=== PATIENT | male | born 1980 | race Caucasian/White ===

== ENCOUNTER 2021-07-06 05:03 | Observation (INO) ==
[2021-07-06] MEDS ORDERED: ONDANSETRON INJ 2 MG/ML 2 ML VIAL IV STA (05:24)
[2021-07-06] MEDS ORDERED: MoRPHine SULFATE 4 MG/ML 1 ML CARP\\VIAL IV STA (05:24)
[2021-07-06] MEDS ORDERED: SODIUM CHLORIDE 0.9% 1000ML 1,000 ML IV ONE (05:25)
--- NOTE | 2021-07-06 05:28 | Emergency Department Note ---
Impression & Plan Hyperglycemia, Acute cholecystitis ADMIT ED Provider Note HPI: The patient is a 41-year-old male who presents the emergency department the chief complaint of upper abdominal discomfort as well as nausea and vomiting this been ongoing since 1130 last evening. Patient states he has had several episodes of vomiting. Patient denies any chest pain or shortness of breath. He states the pain radiates from his epigastrium to his right upper quadrant and back. Arrival to the ED the patient is mildly tachycardic but otherwise hemodynamically stable and in no acute distress. ROS: -Abdominal: Right upper quadrant pain *10 point review systems was conducted and is otherwise negative unless stated above *Outpatient medications and allergy history reviewed PE: General: Alert, NAD HEENT: Normocephalic, atraumatic Eyes: Extraocular eye movement is intact, no scleral erythema Pulmonary: Clear to auscultation bilaterally, no wheezing Cardio: Regular rate and rhythm GI: Abdomen is soft, tenderness over the epigastrium to palpation, no rigidity : No suprapubic tenderness MSK: No evidence of trauma or malformation of the extremities, no edema Skin: No evidence of rash Neuro: Alert, no focal deficits Psychiatric: Cooperative consulting actuary: - An order was placed for continuous cardiac monitoring - Patient was noted to be in sinus rhythm with rate of 80 Medical Decision Making: Patient presented to the emergency department with subacute onset upper abdominal pain as well as nausea and vomiting that began last evening. Shortly after arrival IV was established, lab work obtained, patient was given IV antiemetics, pain medication, and IV fluids. Lab work shows evidence of hyperglycemia without any evidence of DKA, no leukocytosis, no transaminitis. Ultrasound imaging of the gallbladder is equivocal, there is no clear evidence of acute cholecystitis, sonographic Roberto sign is reportedly negative. CT imaging of the abdomen pelvis was obtained that does show some gallbladder wall thickening and is suggesting acute cholecystitis is a possibility. My reassessment the patient states his pain is improved. His lab work does show ev idence of hyperglycemia that appears new, patient states he has no history of diabetes. Given this in conjunction with concerning CT findings, patient will be admitted to the medicine service for further management and surgical consultation was placed. Patient is hemodynamically stable and improved from the standpoint of his pain on my reassessment. Patient is in agreement for admission and he was admitted in stable condition, consultation was placed to the [facility] medical service and Dr. Weems is aware of the admission. Diagnosis: 1. Hyperglycemia without DKA 2. Abdominal pain 3. Nausea and vomiting 4. Cholecystitis Disposition: Admission Enmanuel King DO Emergency Medicine Past Med/Surg History Medical History (Updated 07/06/21 @ 08:01 by Enmanuel King DO) Lower extremity surgery planned Surgical History (Updated 11/24/20 @ 13:19 by AP Brown) H/O eye surgery Family History (Updated 11/24/20 @ 13:20 by AP Brown) Grandmother Breast cancer Myocardial infarction Diabetes Grandfather Diabetes Denies family history of Ovarian cancer Prostate cancer Colorectal cancer Social History (Updated 11/24/20 @ 13:21 by AP Brown) Smoking Status: Current every day smoker Tobacco Type: Cigarettes Second Hand Exposure: No; Hx Alcohol Use: No Hx Substance Use: No marital status: Current Living Situation: Spouse Current Living Situation Comment: and child current occupational status: employed current occupation: [employer] Feels Safe at Home: Yes caffeine: Yes (coffee and tea ) Dental Care, Regularly: No Physical Activity Frequency: 1-2 Times per Week Physical Activity Frequency Comment: working Seatbelt Use: always Sunscreen Use: Yes Allergies Allergies Allergy/AdvReac Type Severity Reaction Status Date / Time No Known Allergies Allergy Unknown Verified 07/06/21 07:10 Home Meds Home Medications Medication Instructions Recorded Confirmed naproxen sodium 220 mg tablet 220 mg PO BID PRN 07/06/21 07/06/21 (Aleve) ranitidine HCl 150 mg tablet 150 mg PO DAILY PRN 07/06/21 07/06/21 Results & Data (ED) Vital Signs Vital Signs - 24 hr 07/06/21 05:13 07/06/21 06:18 07/06/21 06:27 Temperature 37 C Temperature Source Oral Pulse Rate 106 H Pulse Rate [Apical] 76 Pulse Rhythm [Apical] Respiratory Rate 20 12 Respiratory Effort / Characteristics Non-Labored Spontaneous Non-Labored Spontaneous Respiratory Depth Normal Respiratory Pattern Blood Pressure 122/84 Blood Pressure [Right Arm] 148/79 H Blood Pressure Mean 96 Blood Pressure Mean [Right Arm] 102 Blood Pressure Position Sitting Pulse Oximetry 97 99 99 Oxygen Delivery Method Room Air Room Air Room Air Sepsis Recent Fever Within 48 Hours No Sepsis New/Unexplained Change in Mental Status N/A Sepsis Action Taken by Nursing No Action Required 07/06/21 07:00 Temperature Temperature Source Pulse Rate Pulse Rate [Apical] 84 Pulse Rhythm [Apical] Regular Respiratory Rate 18 Respiratory Effort / Characteristics Non-Labored Respiratory Depth Normal Respiratory Pattern Regular Blood Pressure Blood Pressure [Right Arm] 136/82 Blood Pressure Mean Blood Pressure Mean [Right Arm] 100 Blood Pressure Position Pulse Oximetry 100 Oxygen Delivery Method Room Air Sepsis Recent Fever Within 48 Hours Sepsis New/Unexplained Change in Mental Status Sepsis Action Taken by Nursing Laboratory Data Result diagrams: 07/06/21 05:40 07/06/21 05:40 Lab Results 07/06/21 07/06/21 Range/Units 05:40 05:40 WBC 7.51 (4.8-10.8) K/uL RBC 5.78 (4.7-6.1) M/uL Hgb 16.5 (14.0-18.0) g/dL Hct 46.8 (42-52) % MCV 81.0 (80-100) fL MCH 28.5 (25-34) pg MCHC 35.3 (32-36) g/dL RDW Std Deviation 35.6 L (36.4-46.3) fL RDW Coeff of Fernando 12.1 (11.5-14.5) % Plt Count 206 (130-400) K/uL MPV 11.3 H (7.4-10.4) fL Immature Gran % (Auto) 0.3 % Neut % (Auto) 78.8 % Lymph % (Auto) 14.1 % [place] % (Auto) 6.0 % Eos % (Auto) 0.7 % Baso % (Auto) 0.1 % Neut # (Auto) 5.92 (1.4-6.5) K/uL Lymph # (Auto) 1.06 L (1.2-3.4) K/uL [place] # (Auto) 0.45 (0.11-0.59) K/uL Eos # (Auto) 0.05 (0-0.5) K/uL Baso # (Auto) 0.01 (0-0.2) K/uL Immature Gran # (Auto) 0.02 (0.00-0.02) K/uL Sodium 131 L (136-145) mmol/L Potassium 4.6 (3.5-5.1) mmol/L Chloride 97 L (98-107) mmol/L Carbon Dioxide 25 (21-32) mmol/L Anion Gap 9 (3-11) BUN 15 (6-23) mg/dl Creatinine 0.81 (0.6-1.4) mg/dl Est Cr Clr Drug Dosing 96.3 ml/min Est GFR ( Amer) 126.2 ml/min Est GFR (Non-Af Amer) 108.9 ml/min BUN/Creatinine Ratio 18.5 (10-20) Glucose 334 H* (70-99(Fasting)) mg/dl Calcium 9.5 (8.5-10.1) mg/dl Total Bilirubin 0.5 (0.2-1.0) mg/dl AST 12 L (13-39) U/L ALT 16 (7-52) U/L Alkaline Phosphatase 117 H (34-104) U/L Total Protein 7.7 (6.0-8.3) gm/dl Albumin 4.4 (3.4-5.0) gm/dl Globulin 3.3 (2.5-4.0) gm/dl Albumin/Globulin Ratio 1.3 (0.9-2) Lipase 37 (11-82) U/L Administered Medications Discontinued Medications Sodium Chloride (Nss 1000ml) 1,000 mls @ 999 mls/hr IV .Q1H1M ONE Stop: 07/06/21 06:25 Last Infusion: 07/06/21 07:20 Dose: 0 mls/hr Documented by: [id number] Admin: 07/06/21 06:17 Dose: 999 mls/hr Documented by: [id number] Ioversol (Optiray 320 100ml) 93 ml IV ONCE ONE Stop: 07/06/21 07:14 Last Admin: 07/06/21 07:13 Dose: 93 ml Documented by: [id number] Morphine Sulfate (Morphine Sulfate 4 Mg/Ml 1 Ml Carp\Vial) 4 mg IV NOW STA Stop: 07/06/21 05:25 Last Admin: 07/06/21 06:24 Dose: Not Given Documented by: [id number] Ondansetron HCl (Ondansetron Inj 2 Mg/Ml 2 Ml Vial) 4 mg IV NOW STA Stop: 07/06/21 05:25 Last Admin: 07/06/21 06:24 Dose: Not Given Documented by: [id number] Imaging Data Radiologist's Impression: Gallbladder Ultrasound 07/06/21 05:23 US gallbladder CLINICAL HISTORY: RUQ pain, N/V COMPARISON STUDY: CT of the abdomen and pelvis July 11, 2012. . FINDINGS: Liver is sonographically normal. There is no biliary ductal dilatation. Common bile duct measures 3 mm in caliber. There are gallstones within the gallbladder, including a stone which measures approximately 1.4 cm. There is sludge within the gallbladder. Mild gallbladder wall thickening is noted. The wall measures 4 mm thickness. No sonographic Roberto sign was elicited. Pancreatic body is normal. Head and tail are partially obscured. There is no right hydronephrosis. IMPRESSION: 1. Cholelithiasis and mild gallbladder wall thickening. No sonographic Roberto sign. These findings are equivocal for acute cholecystitis. Hepatobiliary scan could be obtained as indicated. 2. No biliary ductal dilatation. ACT 112: Negative or not required by law. Electronically signed by: Austin Saucedo M.D. 07/06/2021 6:33 AM Abdomen/Pelvis CT 07/06/21 06:37 CT OF THE ABDOMEN AND PELVIS WITH CONTRAST CLINICAL HISTORY: Upper abdominal pain, nausea and vomiting. COMPARISON STUDY: CT of the abdomen and pelvis July 11, 2012. Right upper quadrant ultrasound performed earlier today. TECHNIQUE: Following IV administration of 93 mL of Optiray, axial images of the abdomen and pelvis were obtained from the lung bases to the proximal femurs. Images were reviewed in the axial, sagittal, and coronal planes. IV contrast was administered without complication. Automated exposure control was utilized for the study. A dose lowering technique was utilized adhering to the principles of ALARA. CT DOSE: 442.42 mGycm FINDINGS: Lung bases are unremarkable. No pneumatosis, free air or portal venous gas is present. The liver, spleen, adrenal glands, kidneys and pancreas are normal. There is no biliary or pancreatic ductal dilatation. There are multiple gallstones within the gallbladder. These measure up to 1.4 cm. A few calcified stones within the gallbladder neck are noted. There is moderate gallbladder wall thickening. Gallbladder is not significantly distended. No peripancreatic infiltration is present. Caliber and wall thickness of small and large bowel are normal. There is no evidence for a bowel obstruction. No evidence for acute appendicitis. Major vasculature is patent. No lymphadenopathy is present. There is no ascites. No acute fracture or suspicious lesion within the visualized skeletal structures. IMPRESSION: Cholelithiasis, including calculi within the gallbladder neck. Moderate gallbladder wall thickening. These findings favor acute cholecystitis. ACT 112: Negative or not required by law. Electronically signed by: Austin Saucedo M.D. 07/06/2021 7:25 AM Discharge Plan Visit Data Chief Complaint: Abdominal Pain Stated Complaint: ABDOMINAL PAIN AND BACK PAIN ED Provider: Enmanuel King Discharge Problem: Hyperglycemia, Acute cholecystitis Forms Stand Alone Forms: [facility] Prescriptions Prescriptions: No Action ranitidine HCl [Zantac] 150 mg Tablet 150 mg PO DAILY PRN (Reason: Indigestion) RF: 0 naproxen sodium [Aleve] 220 mg Tablet 220 mg PO BID PRN (Reason: Pain) RF: 0 Referrals Referrals: Kushal Mojica DO [Primary Care Provider] -
[2021-07-06 06:07] LABS: Basophils # (auto) 0.01 K/uL (0-0.2); Basophils % (auto) 0.1 %; Eosinophils # (auto) 0.05 K/uL (0-0.5); Eosinophils % (auto) 0.7 %; Hematocrit (blood only) 46.8 % (42-52); Hemoglobin 16.5 g/dL (14.0-18.0); Immature Granulocytes # (auto) 0.02 K/uL (0.00-0.02); Immature Granulocytes % (auto) 0.3 %; Lymphocytes # (auto) 1.06 K/uL (1.2-3.4); Lymphocytes % (auto) 14.1 %; Mean Corpuscular Hemoglobin 28.5 pg (25-34); Mean Corpuscular Hgb Conc 35.3 g/dL (32-36); Mean Platelet Volume 11.3 fL (7.4-10.4); Monocytes # (auto) 0.45 K/uL (0.11-0.59); Neutrophils # (auto) 5.92 K/uL (1.4-6.5); Neutrophils % (auto) 78.8 %; Platelet Count 206 K/uL (130-400); RDW Coefficient of Variation 12.1 % (11.5-14.5); RDW Standard Deviation 35.6 fL (36.4-46.3); Red Blood Count 5.78 M/uL (4.7-6.1); White Blood Count 7.51 K/uL (4.8-10.8)
--- NOTE | 2021-07-06 06:35 | Ultrasound Report ---
US gallbladder CLINICAL HISTORY: RUQ pain, N/V COMPARISON STUDY: CT of the abdomen and pelvis July 11, 2012. . FINDINGS: Liver is sonographically normal. There is no biliary ductal dilatation. Common bile duct me asures 3 mm in caliber. There are gallstones within the gallbladder, including a stone which measures approximately 1.4 cm. There is sludge within the gallbladder. Mild gallbladder wall thickening is no rico. The wall measures 4 mm thickness. No sonographic Roberto sign was elicited. Pancreatic body is no rmal. Head and tail are partially obscured. There is no right hydronephrosis. IMPRESSION: 1. Cholelithiasis and mild gallbladder wall thickening. No sonographic Roberto sign. These findings ar e equivocal for acute cholecystitis. Hepatobiliary scan could be obtained as indicated. 2. No biliary ductal dilatation. ACT 112: Negative or not required by law. Electronically signed by: Austin Saucedo M.D. 07/06/2021 6:33 AM
[2021-07-06 06:57] LABS: Albumin Globulin Ratio 1.3 (0.9-2); Albumin Level 4.4 gm/dl (3.4-5.0); BUN Creatinine Ratio 18.5 (10-20); Bilirubin,Total 0.5 mg/dl (0.2-1.0); Calcium 9.5 mg/dl (8.5-10.1); Creatinine Clr Calc Pharmacy 96.3 ml/min; Est GFR (African American) 126.2 ml/min; Est GFR (Non-African American) 108.9 ml/min; Globulin 3.3 gm/dl (2.5-4.0); Potassium 4.6 mmol/L (3.5-5.1); Total Protein 7.7 gm/dl (6.0-8.3)
[2021-07-06] MEDS ORDERED: OPTIRAY 320 100ml IV ONE (07:13)
--- NOTE | 2021-07-06 07:26 | CT Scan Report ---
CT OF THE ABDOMEN AND PELVIS WITH CONTRAST CLINICAL HISTORY: Upper abdominal pain, nausea and vomiting. COMPARISON STUDY: CT of the abdomen and pelvis July 11, 2012. Right upper quadrant ultrasound perform ed earlier today. TECHNIQUE: Following IV administration of 93 mL of Optiray, axial images of the abdomen and pelvis we re obtained from the lung bases to the proximal femurs. Images were reviewed in the axial, sagittal, and coronal planes. IV contrast was administered without complication. Automated exposure control wa s utilized for the study. A dose lowering technique was utilized adhering to the principles of ALARA . CT DOSE: 442.42 mGycm FINDINGS: Lung bases are unremarkable. No pneumatosis, free air or portal venous gas is present. The liver, spleen, adrenal glands, kidneys and pancreas are normal. There is no biliary or pancreatic jan kartik dilatation. There are multiple gallstones within the gallbladder. These measure up to 1.4 cm. A f ew calcified stones within the gallbladder neck are noted. There is moderate gallbladder wall thicken ing. Gallbladder is not significantly distended. No peripancreatic infiltration is present. Caliber a nd wall thickness of small and large bowel are normal. There is no evidence for a bowel obstruction. No evidence for acute appendicitis. Major vasculature is patent. No lymphadenopathy is present. There is no ascites. No acute fracture or suspicious lesion within the visualized skeletal structures. IMPRESSION: Cholelithiasis, including calculi within the gallbladder neck. Moderate gallbladder wall thickening. These findings favor acute cholecystitis. ACT 112: Negative or not required by law. Electronically signed by: Austin Saucedo M.D. 07/06/2021 7:25 AM
--- NOTE | 2021-07-06 08:00 | History & Physical Report ---
Date of Service July 06, 2021 Assessment & Plan (1) Acute cholecystitis: Plan: J Luis is a 41yo M with a PMHx of tobacco use who presents with abdominal pain and imaging suggestive of cholelithiasis Cholelithiasis - CT: IMPRESSION: Cholelithiasis, including calculi within the gallbladder neck. Moderate gallbladder wall thickening. These findings favor acute cholecystitis. - US: 1. Cholelithiasis and mild gallbladder wall thickening. No sonographic Roberto sign. These findings are equivocal for acute cholecystitis. Hepatobiliary scan could be obtained as indicated. No biliary ductal dilatation. - WBC normal, Hgb normal - Plt normal - Cr normal - BSG 335 on admit, no hx DM - AST/ALT/Alkph 02/05/ - COVIDnegative Surgery consulted. Plan for lap cholecystectomy today. Pain control with morphine scaled 2-4 mg every 4 hours as needed as needed, nausea control Zofran NSS 125 cc/h while n.p.o. Received 1 L NSS bolus in ER Type 2 diabetes mellitus, new Patient with no prior history of type 2 diabetes. Does report family history of type 2 diabetes Glucose over 300 on admission. Received 10 units of IV insulin and basal/bolus sliding scale weight-based subcu Glucose decreased to 127 on recheck Recommend addition of metformin to be titrated to goal of 1 g twice daily as outpatient on discharge Given A1c greater than 10 recommend dual therapy on discharge. No history of CAD. SGLT2 versus Januvia Will require close outpatient follow-up to PCP community educator consulted Will need DM supplies for home glycemic monitoring on discharge R Leg Hardware - Metal plates and 9 screws in R leg, well healed. DVT prophylaxis: SCDs, low risk. Lovenox deferred in anticipation of cholecystectomy this afternoon CODE STATUS: Full code, surrogate decision maker would be his in an emergen cy Diet: N.p.o. Disposition: Medical surgical (2) Hyperglycemia: (3) Smoker: History of Present Illness Primary Care Provider: Kushal Mojica DO The patient is a 41-year-old male who p/w upper abdominal discomfort as well as nausea and vomiting this been ongoing since 1130 last evening. Pain from epigastrum to RUQ/back. Tachy and normotensive on admit. no leukocytosis. CT-Ab: IMPRESSION: Cholelithiasis, including calculi within the gallbladder neck. Moderate gallbladder wall thickening. These findings favor acute cholecystitis. US: IMPRESSION:1. Cholelithiasis and mild gallbladder wall thickening. No sonographic Roberto sign. These findings are equivocal for acute cholecystitis. Hepatobiliary scan could be obtained as indicated. 2. No biliary ductal dilatation. 1130 pm thought had heartburn. No improvement with zantac. Traveled from his epigastrum to RUQ/RLQ and back. Took alieve, soaked in the tub, tried and ice pack on his bakc all of which did not help. With persistent pain came in to ER. Found out he had a gallbladder problem and that he has high blood suga NO pain with meals. NO change in BMs/BMs brown not zelaya. No history of gallbladder problems no history of abdominal surgery Hx of leg surgery. 9 screws and 1 plate in R leg.Needed tear duct surgery as a child. Denies lung disease WBC normal Hgb normal Plt normal Cr normal BSG 335 on admit, no hx DM AST/ALT/Alkph COVID Pending Recieved morphine, zofran, 1L NSS in ER. Surgery Consulted by ER No heart problems No FHx of [place]. Fhx HTN and T2DM Medical History: Reviewed Medications: Reviewed Surgical History: Reviewed Allergies: Reviewed, NKDA Social History: 0.5ppd 'for quite a long time.' Alcohol rare/social. No MM or recreational drug use. Code Status: Full Code. Surrogate DM [phone] Meghann Hilario. Allergies Allergy/AdvReac Type Severity Reaction Status Date / Time No Known Allergies Allergy Unknown Verified 07/06/21 07:10 Home Medications Medication Instructions Recorded Confirmed Type naproxen sodium 220 mg tablet 220 mg PO BID PRN 07/06/21 07/06/21 History (Aleve) ranitidine HCl 150 mg tablet 150 mg PO DAILY PRN 07/06/21 07/06/21 History Past Med/Surg History Medical History Lower extremity surgery planned Orthopedic hardware present Surgical History H/O eye surgery Family History Grandmother Breast cancer Myocardial infarction Diabetes Grandfather Diabetes Denies family history of Ovarian cancer Prostate cancer Colorectal cancer Social History Smoking Status: Current some day smoker Tobacco Type: Cigarettes Second Hand Exposure: No; Do You Dip or Chew Tobacco: No; Tobacco Cessation Education Requested by Patient: No Hx Alcohol Use: Yes Alcohol type: beer Hx Substance Use: No Preferred Language: Greek Communication Ability: 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 Beliefs That Will Affect Care: None marital status: Current Living Situation: Family Current Living Situation Comment: and child current occupational status: employed current occupation: [employer] Feels Safe at Home: Yes Safety Concerns: Feels Safe At This Time caffeine: Yes (coffee and tea ) Dental Care, Regularly: No Physical Activity Frequency: 1-2 Times per Week Physical Activity Frequency Comment: working Seatbelt Use: always Sunscreen Use: Yes Assistive Devices: Glasses Review of Systems Review of Systems: All systems reviewed & are unremarkable except as noted in Subjective Physical Exam Physical Exam: General: A&Ox3. NAD. Cooperative. HEENT: Atraumatic, normocephalic. Pulm: CTAB A&P. -wheezes, -rales, -rhonchi. Symmetrical chest rise. No increased work of breathing. No respiratory distress. Cardiac: RRR, -mrg. Radial pulses intact and symmetrical. Abdominal: NT on soft palpation, minimally TTP at RUQ on firm palpation, no guarding, no rigidity Results & Data Results & Data ([facility]) Vital Signs (Past 12 Hours) Vital Signs Temp Pulse Pulse Resp BP BP Pulse Ox 07/06/21 07:00 84 18 136/82 100 07/06/21 06:27 99 07/06/21 06:18 76 12 148/79 H 99 07/06/21 05:13 37 C 106 H 20 122/84 97 PG Care Time/CCT Total # of Minutes Spent Total Time Spent with Patient: Total time spent is greater than 50% in coordination of care (as documented) at patient's floor/unit and/or counseling patient: Coding Level of Care Code INT OBSERVATION CARE 50M LVL 2 Diagnoses Acute cholecystitis K81.0 Hyperglycemia R73.9 Smoker F17.200
[2021-07-06] MEDS ORDERED: NovoLIN-R INSULIN PER UNIT CHARGE IV STA (08:05)
[2021-07-06] MEDS ORDERED: MoRPHine SULFATE 4 MG/ML 1 ML CARP\\VIAL IV PRN (08:06)
[2021-07-06] MEDS ORDERED: MoRPHine SULFATE 2 MG/ML CARP IV PRN (08:06)
[2021-07-06] MEDS ORDERED: NICOTINE 21 MG/24 HR TDSY TD PRN (08:06)
[2021-07-06 09:35] LABS: Appearance Urine Clear (Clear); Bilirubin Urine Negative (Negative); Blood Urine Negative (Negative); Color Urine Yellow; Glucose Urine UA 3+ (Negative); Ketones Urine Trace (Negative); Leukocyte Esterase Urine Negative (Negative); Nitrite Urine Negative (Negative); Protein Urine Negative (Negative); Specific Gravity Urine > 1.045 (1.000-1.030); Urobilinogen Urine Negative (Negative)
[2021-07-06] MEDS ORDERED: CARBOHYDRATES FOR HYPOGLYCEMIA PO PRN (10:14)
[2021-07-06] MEDS ORDERED: GLUCOSE 40% GEL 15 GM TUBE PO PRN (10:14)
[2021-07-06] MEDS ORDERED: INSULIN GLARGINE SOLOSTAR 100 UNITS/ML 3 ML PEN SC SCH ×2 (10:14→21:00)
[2021-07-06] MEDS ORDERED: DEXTROSE 50% 50 ML SYRINGE IV PRN (10:14)
[2021-07-06] MEDS ORDERED: ACETAMINOPHEN 325 MG TAB PO PRN (10:14)
[2021-07-06] MEDS ORDERED: GLUCAGON FOR INJ 1 MG VIAL SQ PRN (10:14)
[2021-07-06] MEDS ORDERED: GLUCOSE 10 TABS/TUBE PO PRN (10:14)
[2021-07-06] MEDS ORDERED: PHARMACY GLYCEMIC MGMT CONSULT PRN (10:14)
[2021-07-06] MEDS: SODIUM CHLORIDE 0.9% 1000ML 1,000 ML IV SCH ×2 (10:44→18:24)
--- NOTE | 2021-07-06 11:09 | Surgery Consultation ---
Date of Consultation July 06, 2021 Assessment & Plan (1) Acute cholecystitis: Ultrasound and CT images and results reviewed by me, consistent with acute cholecystitis We will plan on laparoscopic cholecystectomy, possible open, possible intraoperative cholangiogram today Consent was obtained, risks discussed including bleeding, infection, bile leak, ductal injury (2) Hyperglycemia: History of Present Illness Reason for Consultation: Acute cholecystitis Attending Physician: Zheng Norris MD History of Present Illness Is a 41-year-old male who was admitted earlier this morning with epigastric and right upper quadrant pain radiating to his back, sharp in nature. He is never had this pain prior to last night. Pain began at 11:30 PM last night. He does have a history of GERD for which he takes Pepcid. He denies any abdominal surgeries in the past. He denies any acholic stools, scleral icterus, jaundice, tea colored urine. He continues to have mild epigastric and right upper quadrant pain at the time of my exam. Allergies Allergy/AdvReac Type Severity Reaction Status Date / Time No Known Allergies Allergy Unknown Verified 07/06/21 07:10 Home Medications Medication Instructions Recorded Confirmed Type naproxen sodium 220 mg tablet 220 mg PO BID PRN 07/06/21 07/06/21 History (Aleve) ranitidine HCl 150 mg tablet 150 mg PO DAILY PRN 07/06/21 07/06/21 History Patient History Medical History Lower extremity surgery planned Orthopedic hardware present Surgical History H/O eye surgery Family History Grandmother Breast cancer Myocardial infarction Diabetes Grandfather Diabetes Denies family history of Ovarian cancer Prostate cancer Colorectal cancer Social History Smoking Status: Current every day smoker Tobacco Type: Cigarettes Second Hand Exposure: No; Hx Alcohol Use: No Hx Substance Use: No marital status: Current Living Situation: Spouse Current Living Situation Comment: and child current occupational status: employed current occupation: [employer] Feels Safe at Home: Yes caffeine: Yes (coffee and tea ) Dental Care, Regularly: No Physical Activity Frequency: 1-2 Times per Week Physical Activity Frequency Comment: working Seatbelt Use: always Sunscreen Use: Yes Review of Systems Constitutional: no fever and no chills Eyes: no worsening vision Ear, Nose, Mouth, Throat: no ear pain and no hearing loss Respiratory: no cough and no dyspnea Cardiovascular: no chest pain and no dyspnea on exertion Gastrointestinal: + abdominal pain and + heartburn; no nausea, no vomiting, no constipation and no diarrhea/loose stools Genitourinary: no dysuria Musculoskeletal: no back pain and no neck pain Integumentary: no rash, no skin ulcer and no dry skin Neurologic: no gait abnormality and no headache(s) Psychiatric: no behavioral changes and no depression Endocrine: no fatigue Hematologic / Lymphatic: no easy bleeding and no easy bruising Physical Exam Constitutional: WD/WN, vitals as above Eyes: PERRL, conjunctivae normal, anicteric sclerae ENMT: external ear and nose normal, oropharynx normal Neck: trachea midline, no thyromegaly Respiratory: normal respiratory effort, lungs clear to auscultation Cardiovascular: RRR, no murmur, no edema Gastrointestinal (Abdomen): Inspection/Auscultation: abdomen normal to inspection; abdomen not distended Percussion/Palpation: + abdomen tender (Epigastrium and right upper quadrant) and abdomen soft; no guarding, abdomen not rigid and no hernia Positive Roberto's Musculoskeletal: no cyanosis or clubbing, extremities motor strength 5/5 Skin: no rashes, warm and dry Neurologic: PERRL, EOMI, accommodation nl, no face palsy, no dysarthria Psychiatric: A+Ox3, euthymic affect Results & Data ([facility]) Vital Signs (Past 12 Hours) Vital Signs Temp Pulse Pulse Pulse Resp BP BP 07/06/21 10:14 36.7 C 75 16 123/74 07/06/21 09:29 81 15 130/74 07/06/21 09:19 81 15 130/74 07/06/21 08:00 78 14 133/83 07/06/21 07:30 78 16 132/81 07/06/21 07:00 79 84 16 136/82 136/82 07/06/21 06:27 07/06/21 06:18 76 12 148/79 H 07/06/21 05:13 37 C 106 H 20 122/84 Pulse Ox 07/06/21 10:14 98 07/06/21 09:29 99 07/06/21 09:19 99 07/06/21 08:00 98 07/06/21 07:30 100 07/06/21 07:00 100 07/06/21 06:27 99 07/06/21 06:18 99 07/06/21 05:13 97 Diagnostic Findings US gallbladder CLINICAL HISTORY: RUQ pain, N/V COMPARISON STUDY: CT of the abdomen and pelvis July 11, 2012. . FINDINGS: Liver is sonographically normal. There is no biliary ductal dilatation. Common bile duct measures 3 mm in caliber. There are gallstones within the gallbladder, including a stone which measures approximately 1.4 cm. There is sludge within the gallbladder. Mild gallbladder wall thickening is noted. The wall measures 4 mm thickness. No sonographic Roberto sign was elicited. Pancreatic body is normal. Head and tail are partially obscured. There is no right hydronephrosis. IMPRESSION: 1. Cholelithiasis and mild gallbladder wall thickening. No sonographic Roberto sign. These findings are equivocal for acute cholecystitis. Hepatobiliary scan could be obtained as indicated. 2. No biliary ductal dilatation. CT OF THE ABDOMEN AND PELVIS WITH CONTRAST CLINICAL HISTORY: Upper abdominal pain, nausea and vomiting. COMPARISON STUDY: CT of the abdomen and pelvis July 11, 2012. Right upper quadrant ultrasound performed earlier today. TECHNIQUE: Following IV administration of 93 mL of Optiray, axial images of the abdomen and pelvis were obtained from the lung bases to the proximal femurs. Images were reviewed in the axial, sagittal, and coronal planes. IV contrast was administered without complication. Automated exposure control was utilized for the study. A dose lowering technique was utilized adhering to the principles of ALARA. CT DOSE: 442.42 mGycm FINDINGS: Lung bases are unremarkable. No pneumatosis, free air or portal venous gas is present. The liver, spleen, adrenal glands, kidneys and pancreas are normal. There is no biliary or pancreatic ductal dilatation. There are multiple gallstones within the gallbladder. These measure up to 1.4 cm. A few calcified stones within the gallbladder neck are noted. There is moderate gallbladder wall thickening. Gallbladder is not significantly distended. No peripancreatic infiltration is present. Caliber and wall thickness of small and large bowel are normal. There is no evidence for a bowel obstruction. No evidence for acute appendicitis. Major vasculature is patent. No lymphadenopathy is present. There is no ascites. No acute fracture or suspicious lesion within the visualized skeletal structures. IMPRESSION: Cholelithiasis, including calculi within the gallbladder neck. Moderate gallbladder wall thickening. These findings favor acute cholecystitis. PG Care Time/CCT Total # of Minutes Spent Total Time Spent with Patient: Total time spent is greater than 50% in coordination of care (as documented) at patient's floor/unit and/or counseling patient: Coding Level of Care Code 54001 Office/OBS Consult Lvl 5 Diagnoses Acute cholecystitis K81.0 Hyperglycemia R73.9
--- NOTE | 2021-07-06 11:12 | Surgery Consultation ---
Date of Consultation July 06, 2021 Assessment & Plan (1) Acute cholecystitis: Has stones in neck of gallbladder as well as wall thickening on CT and US. He was admitted to medical service earlier due to elevated glucose (300's) without h/o diabetes. Repeat glucose 127. Will plan for laparoscopic cholecystectomy today. History of Present Illness Attending Physician: Zheng Norris MD History of Present Illness 41 y/o male with epigastric pain radiating to RUQ that began around 11 PM, several hours after dinner including hamburger, hot dog and noodles. Had N/V at onset. No previous abdominal pain or fatty food intolerance. No previous abdominal surgery. Allergies Allergy/AdvReac Type Severity Reaction Status Date / Time No Known Allergies Allergy Unknown Verified 07/06/21 07:10 Home Medications Medication Instructions Recorded Confirmed Type naproxen sodium 220 mg tablet 220 mg PO BID PRN 07/06/21 07/06/21 History (Aleve) ranitidine HCl 150 mg tablet 150 mg PO DAILY PRN 07/06/21 07/06/21 History Patient History Medical History Lower extremity surgery planned Orthopedic hardware present Surgical History H/O eye surgery Family History Grandmother Breast cancer Myocardial infarction Diabetes Grandfather Diabetes Denies family history of Ovarian cancer Prostate cancer Colorectal cancer Social History Smoking Status: Current every day smoker Tobacco Type: Cigarettes Second Hand Exposure: No; Hx Alcohol Use: No Hx Substance Use: No marital status: Current Living Situation: Spouse Current Living Situation Comment: and child current occupational status: employed current occupation: [employer] Feels Safe at Home: Yes caffeine: Yes (coffee and tea ) Dental Care, Regularly: No Physical Activity Frequency: 1-2 Times per Week Physical Activity Frequency Comment: working Seatbelt Use: always Sunscreen Use: Yes Review of Systems Constitutional: no fever, no chills and no anorexia Gastrointestinal: + abdominal pain, + nausea and + vomiting; no bloating, no heartburn and no change in bowel habits Physical Exam Constitutional: WD/WN, vitals as above Respiratory: normal respiratory effort, lungs clear to auscultation Cardiovascular: RRR, no murmur, no edema Gastrointestinal (Abdomen): Inspection/Auscultation: abdomen not distended Percussion/Palpation: + abdomen tender (RUQ) and abdomen soft; no guarding Skin: no rashes, warm and dry Results & Data ([facility]) Vital Signs (Past 12 Hours) Vital Signs Temp Pulse Pulse Pulse Resp BP BP 07/06/21 10:14 36.7 C 75 16 123/74 07/06/21 09:29 81 15 130/74 07/06/21 09:19 81 15 130/74 07/06/21 08:00 78 14 133/83 07/06/21 07:30 78 16 132/81 07/06/21 07:00 79 84 16 136/82 136/82 07/06/21 06:27 07/06/21 06:18 76 12 148/79 H 07/06/21 05:13 37 C 106 H 20 122/84 Pulse Ox 07/06/21 10:14 98 07/06/21 09:29 99 07/06/21 09:19 99 07/06/21 08:00 98 07/06/21 07:30 100 07/06/21 07:00 100 07/06/21 06:27 99 07/06/21 06:18 99 07/06/21 05:13 97 PG Care Time/CCT Total # of Minutes Spent Total Time Spent with Patient: Total time spent is greater than 50% in coordination of care (as documented) at patient's floor/unit and/or counseling patient: Coding Level of Care Code 51233 Inpt Consult Level 3 Diagnoses Acute cholecystitis K81.0
[2021-07-06 12:36] LABS: Estimated Average Glucose 289 mg/dl; Hemoglobin A1C 11.7 % (4.5-5.6)
[2021-07-06] MEDS ORDERED: INSULIN GLARGINE SOLOSTAR 100 UNITS/ML 3 ML PEN SC ONE (13:00)
[2021-07-06] MEDS: INSULIN ASPART PER UNIT SC SCH ×4 (13:06→21:11)
--- NOTE | 2021-07-06 14:42 | Pharmacy Report ---
Pharmacy Glycemic Short Note 2 - Date of Service July 06, 2021 - Glycemic Short BSG Results (Last 24 hours): 07/06/21 07/06/21 07/06/21 05:40 10:17 12:07 Glucose 334 H* POC Glucose 127 H 152 H OUTPATIENT ANTIDIABETIC REGIMEN: * n/a * HbA1c: 11.7% (07/06/21) ASSESSMENT: * is a 41 year old male who presents with abdominal pain and suspected acute cholecystitis * BSG of 334 mg/dL on presentation, given 10 units IV insulin with a repeat POC BSG ~one hour later of 127 mg/dL * Apparent new diagnosis of diabetes based on elevated random BSG and HbA1c of 11.7% * Patient is currently NPO for planned laparoscopic cholecystectomy today * Will order conservative weight-based Lantus and Novolog at this time * Discussed with CDE who suggested the following labs: * Glutamic Acid Decarboxylase-65 PLUS * Zinc Transporter 8 (ZnT8) Ab or Insulinoma Antigen-2 (IA-2) * Labs subsequently ordered by provider, will follow PLAN FOR INPATIENT GLYCEMIC CONTROL: * Basal insulin * Lantus 5 units SC x 1 at lunchtime, 0-5 units HS (see EHR for details) * Bolus insulin * NovoLog per scale ACHS or Q6hrs while NPO * Goal Range: Low 110 mg/dL - High 140 mg/dL * Correction Factor: 40 mg/dL/unit * Nutritional / Prandial insulin per carb ratio of 1 unit per 15 grams CHO consumed
--- NOTE | 2021-07-06 14:58 | Anesthesiology Consultation ---
Date of Service July 06, 2021 Assessment & Plan Chart Review Chart Review: Acceptable Risk for Surgery Consults Requested none ASA ASA2 Proposed Anesthesia Anesthesia Type: General Risk / Benefits Reviewed With: PT / POA / Parent / Guardian, Accepts Plan and Informed Consent Obtained History Surgery Operation Date: 07/06/21 13:10 Proposed Procedures p Laparoscopic Cholecystectomy Possible Open, Possible Cholangiogram - Akhil Browne DO Height/Weight Height: 5 ft 6 in Weight: 57.9 kg Allergies Allergy/AdvReac Type Severity Reaction Status Date / Time No Known Allergies Allergy Unknown Verified 07/06/21 07:10 Medications Home Medications Medication Instructions Recorded Confirmed Last Taken naproxen sodium 220 mg tablet 220 mg PO BID PRN 07/06/21 07/06/21 07/06/21 01:30 (Aleve) 440 mg ranitidine HCl 150 mg tablet 150 mg PO DAILY PRN 07/06/21 07/06/21 07/05/21 23:30 Active Medications Generic Name Dose Route Start Last Admin Trade Name Freq PRN Reason Stop Dose Admin Sodium Chloride 1,000 mls @ 125 mls/hr 07/06/21 10:14 07/06/21 10:44 Nss 1000ml IV 07/07/21 02:13 125 mls/hr .Q8H AD Administration Insulin Aspart 0 units 07/06/21 12:30 07/06/21 13:06 Insulin Aspart Per Unit SC 08/05/21 12:29 1 units Q6 AD Administration NPO Date Last Intake of Fluids: 07/06/21 Time Last Intake of Fluids: 04:00 Date Last Intake of Solids: 07/05/21 Time Last Intake of Solids: 21:30 Past Medical History Medical History (Updated 07/06/21 @ 14:55 by Charlotte Del Valle DO) Diabetes mellitus Lower extremity surgery planned Orthopedic hardware present Exercise / Class Metabolic Activity 1 > 8 Run/Swim/Ski/Tennis Past Family History Family History Grandmother Breast cancer Myocardial infarction Diabetes Grandfather Diabetes Denies family history of Ovarian cancer Prostate cancer Colorectal cancer Past Surgical History Surgical History H/O eye surgery Past Anesthesia History No Hx of Anesthesia Complications and No Family Hx of Anesthesia Complications History of PONV No Hx of PONV and No Hx of Motion Sickness Social History Smoking Status: Current some day smoker tobacco type: cigarettes Do You Dip or Chew Tobacco: No Hx Alcohol Use: Yes Alcohol type: beer alcohol intake frequency: holidays/special occasions only Hx Substance Use: No substance use type: does not use Physical Exam Vital Signs Last Vital Signs Temp 37.1 C 07/06/21 14:52 Pulse 75 07/06/21 14:52 Resp 18 07/06/21 14:52 BP 114/74 07/06/21 14:52 Pulse Ox 98 07/06/21 14:52 ENMT Mouth: no TMJ abnormality Thyromental Distance: > or= 3.5 Finger Breadths Mallampati Class: II Neck normal visual inspection, trachea midline and + facial hair; neck extension not limited Respiratory normal respiratory effort Auscultation: lungs clear to auscultation bilaterally Cardiovascular Rate/Rhythm: regular rate and regular rhythm Heart Sounds: no murmur Musculoskeletal Spine: normal cervical ROM Extremities: full ROM of extremities Neurologic moves all extremities Psychiatric Orientation: alert and oriented x 3 Testing Laboratory Results 07/06/21 05:40 07/06/21 05:40 Hemoglobin A1c 11.7 % (4.5-5.6) H 07/06/21 05:40 Urine Color Yellow 07/06/21 09:15 Urine Appearance Clear (Clear) 07/06/21 09:15 Urine pH 5.0 (4.5-7.5) 07/06/21 09:15 Ur Specific [place] > 1.045 (1.000-1.030) H 07/06/21 09:15 Urine Protein Negative (Negative) 07/06/21 09:15 Urine Glucose (UA) 3+ (Negative) H 07/06/21 09:15 Urine Ketones Trace (Negative) H 07/06/21 09:15 Urine Nitrite Negative (Negative) 07/06/21 09:15 Ur Leukocyte Esterase Negative (Negative) 07/06/21 09:15 07/06/21 07/06/21 07/06/21 14:52 12:07 10:17 POC Glucose 136 H 152 H 127 H
[2021-07-06] MEDS ORDERED: MoRPHine SULFATE 10 MG/ML CARP/VIAL IV PRN (15:01)
[2021-07-06] MEDS ORDERED: MEPERIDINE HCL 25 MG/ML CARP/VIAL IV PRN (15:01)
[2021-07-06] MEDS ORDERED: fentaNYL citrate 100 MCG/2 ML VIAL ONE (15:01)
[2021-07-06] MEDS ORDERED: fentaNYL citrate 100 MCG/2 ML VIAL IV PRN (15:01)
[2021-07-06] MEDS ORDERED: LIDOCAINE 2% 2 ML VIAL/AMP(20MG/ML) INFIL ONE (15:01)
[2021-07-06] MEDS ORDERED: ePHEDrine sulfate 50 MG/ML AMP IV PRN (15:01)
[2021-07-06] MEDS ORDERED: ATROPINE SULFATE 0.1 MG/ML 10ML SYR IV PRN (15:01)
[2021-07-06] MEDS ORDERED: ROCURONIUM BROMIDE 10 MG/ML 5 ML VIAL IV ONE (15:01)
[2021-07-06] MEDS ORDERED: MIDAZOLAM HCL 1 MG/ML 2ML VIAL ONE (15:01)
[2021-07-06] MEDS ORDERED: ONDANSETRON INJ 2 MG/ML 2 ML VIAL ONE (15:01)
[2021-07-06] MEDS ORDERED: DEXAMETHASONE SOD INJ 4 MG/ML VIAL ONE (15:01)
[2021-07-06] MEDS ORDERED: PROPOFOL IV EMULSION 10 MG/ML 20 ML VIAL IV ONE (15:01)
[2021-07-06] MEDS ORDERED: ONDANSETRON INJ 2 MG/ML 2 ML VIAL IV PRN (15:01)
[2021-07-06] MEDS ORDERED: BUPIVACAINE/EPINEPHRINE 0.25% 1:200,000 30 ML VIAL ONE (15:17)
[2021-07-06] MEDS ORDERED: ceFAZolin 2000MG 2,000 MG/15 ML SYR IV ONE (16:13)
[2021-07-06] MEDS ORDERED: KETOROLAC 30 MG/ML VIAL ONE (16:37)
--- NOTE | 2021-07-06 16:41 | Post Operative Brief Note ---
PG Immediate Post Op with CF Date of Surgery July 06, 2021 Pre & Post Diagnosis Operation Date: 07/06/21 13:10 Pre-Op Diagnosis: Acute Cholecystitis Post-Op Diagnosis: Acute Cholecystitis I identified the patient and participated in the time-out.: Yes Procedure Operation Date: 07/06/21 13:10 Actual Procedures p Laparoscopic Cholecystectomy (Not Applicable) - Akhil Browne DO Surgeon Akhil Browne DO Home Housekeeper Narciso Nunez PA-C Estimated Blood Loss 5 Findings See Below Acutely inflamed edematous gallbladder consistent with acute cholecystitis Specimens Specimen Description: A. Gallbladder Anesthesia Type General Complications none Disposition Disposition: Recovery Room
--- NOTE | 2021-07-06 16:44 | Operative Report ---
PG Post Operative Report Pre & Post Diagnosis Operation Date: 07/06/21 13:10 Pre-Op Diagnosis: Acute Cholecystitis Post-Op Diagnosis: Acute Cholecystitis I identified the patient and participated in the time-out.: Yes Procedure Operation Date: 07/06/21 13:10 Actual Procedures p Laparoscopic Cholecystectomy (Not Applicable) - Akhil Browne DO Surgeon Akhil Browne DO Institute Scientist Narciso Nunez PA-C Estimated Blood Loss 5 Findings See Below Acutely inflamed edematous gallbladder consistent with acute cholecystitis Fluids see anesthesia record Specimens Gallbladder to pathology Drains None Anesthesia Type General Complications none Disposition Disposition: Recovery Room Indications 41-year-old male with acute cholecystitis Description of Procedure The patient was brought to the operating room and placed in the supine position with both arms extended. At this time he underwent general endotracheal anesthesia without any problems. He was given appropriate pre-operative antibiotics. His abdomen was prepped and draped in the usual sterile fashion. A timeout was called, the procedure was verified as Laparoscopic cholecystectomy, possible open, possible intra-operative cholangiogram. Surgical, nursing and anesthesia teams agreed and the procedure was begun. After injection of 0.25% Marcaine with epinephrine, a supraumbilical vertical incision was made and carried down to the fascia using S-retractors. The abdominal wall was then elevated with towel clamps and abdomen entered using the Veress needle confirming position using the saline drop test. Pneumoperitoneum was established. 5mm trocar was placed. Laparoscope was introduced. No injury from entry into the abdomen was visualized after inspection of the abdomen. Three further ports were placed under direct visualization. One 11mm in the subxiphoid region and two 5mm in the RUQ. At this time the abdomen was inspected and the gallbladder identified. The gallbladder was acutely inflamed and edematous. The gallbladder fundus was grasped and retracted cephalad. The gallbladder infundibulum was then grasped and retracted laterally. The cystic duct and cystic artery were then identified and skeletonized. The critical view of safety was obtained. They were both then clipped twice proximally and once distally and then divided using scissors. The gallbladder was then taken off of the liver bed using electrocautery and placed in an endocatch bag and removed from the subxiphoid port. The liver bed was then inspected and no bile leak or bleeding was evident. The subxiphoid port was then closed using 0-Vicryl using the suture passer. The trocars were then removed under direct visualization and no bleeding was present. Abdomen was desufflated. The skin was then closed using 4-0 Monocryl in a subcuticular fashion. Surgical glue was applied. Needle and sponge counts were correct x 2. At this time the patient was awoken from anesthesia and extubated having remained stable throughout the entire case. The patient was then transported to PACU in stable condition. The physician assistant toddler teacher was present scrubbed for the entire case. He was essential in prepping, positioning the patient, retraction and exposure, driving the laparoscope, closure of the incisions and placement the dressings. I attest to the content of the Intraoperative Record and any orders documented therein. Any exceptions are noted below.
--- NOTE | 2021-07-06 17:29 | Anesthesiology Progress Note ---
Date of Service July 06, 2021 Anesthesia Post Procedure Vital Signs Vital Signs: Temp Pulse Pulse Pulse Resp BP BP 07/06/21 17:20 70 15 138/83 07/06/21 17:10 74 18 134/84 07/06/21 17:00 82 15 158/82 H 07/06/21 16:53 36.1 C L 90 15 148/84 H 07/06/21 14:52 37.1 C 75 18 114/74 07/06/21 10:14 36.7 C 75 16 123/74 07/06/21 09:29 81 15 130/74 07/06/21 09:19 81 15 130/74 07/06/21 08:00 78 14 133/83 07/06/21 07:30 78 16 132/81 07/06/21 07:00 79 84 16 136/82 136/82 07/06/21 06:27 07/06/21 06:18 76 12 148/79 H 07/06/21 05:13 37 C 106 H 20 122/84 Pulse Ox 07/06/21 17:20 98 07/06/21 17:10 100 07/06/21 17:00 100 07/06/21 16:53 95 07/06/21 14:52 98 07/06/21 10:14 98 07/06/21 09:29 99 07/06/21 09:19 99 07/06/21 08:00 98 07/06/21 07:30 100 07/06/21 07:00 100 07/06/21 06:27 99 07/06/21 06:18 99 07/06/21 05:13 97 Pain Intensity Right Anterior: Pain Intensity: 1 Abdomen: Pain Intensity: 4 Transfer of Care Handoff Completed per policy Notes Mental Status: alert / awake / arousable and participated in evaluation Patient Amnestic to Procedure: Yes Nausea / Vomiting: adequately controlled Pain: adequately controlled Airway Patency, RR, SpO2: stable & adequate BP & HR: stable & adequate Hydration State: stable & adequate Anesthetic Complications: no major complications apparent and Pt Satisfied with anesthetic care
--- NOTE | 2021-07-06 17:32 | Anesthesiology Progress Note ---
Date of Service July 06, 2021 Anesthesia Post Procedure Vital Signs Vital Signs: Temp Pulse Pulse Pulse Resp BP BP 07/06/21 17:20 70 15 138/83 07/06/21 17:10 74 18 134/84 07/06/21 17:00 82 15 158/82 H 07/06/21 16:53 36.1 C L 90 15 148/84 H 07/06/21 14:52 37.1 C 75 18 114/74 07/06/21 10:14 36.7 C 75 16 123/74 07/06/21 09:29 81 15 130/74 07/06/21 09:19 81 15 130/74 07/06/21 08:00 78 14 133/83 07/06/21 07:30 78 16 132/81 07/06/21 07:00 79 84 16 136/82 136/82 07/06/21 06:27 07/06/21 06:18 76 12 148/79 H 07/06/21 05:13 37 C 106 H 20 122/84 Pulse Ox 07/06/21 17:20 98 07/06/21 17:10 100 07/06/21 17:00 100 07/06/21 16:53 95 07/06/21 14:52 98 07/06/21 10:14 98 07/06/21 09:29 99 07/06/21 09:19 99 07/06/21 08:00 98 07/06/21 07:30 100 07/06/21 07:00 100 07/06/21 06:27 99 07/06/21 06:18 99 07/06/21 05:13 97 Pain Intensity Right Anterior: Pain Intensity: 1 Abdomen: Pain Intensity: 4 Transfer of Care Handoff Completed per policy Notes Mental Status: alert / awake / arousable Patient Amnestic to Procedure: Yes Nausea / Vomiting: adequately controlled Pain: adequately controlled Airway Patency, RR, SpO2: stable & adequate BP & HR: stable & adequate Hydration State: stable & adequate Anesthetic Complications: no major complications apparent and Pt Satisfied with anesthetic care
[2021-07-06] MEDS ORDERED: oxyCODONE HCL IR 5 MG TAB (IMMEDIATE RELEASE) PO PRN (17:56)
[2021-07-06] MEDS ORDERED: Nursing to Pharmacy Communication SCH (18:00)
[2021-07-07] MEDS ORDERED: INSULIN ASPART PER UNIT SC SCH (03:00)
[2021-07-07 07:12] LABS: Hematocrit (blood only) 40.2 % (42-52); Hemoglobin 13.8 g/dL (14.0-18.0); Mean Corpuscular Hemoglobin 27.7 pg (25-34); Mean Corpuscular Hgb Conc 34.3 g/dL (32-36); Mean Corpuscular Volume 80.7 fL (80-100); Mean Platelet Volume 11.3 fL (7.4-10.4); Platelet Count 183 K/uL (130-400); RDW Coefficient of Variation 12.4 % (11.5-14.5); RDW Standard Deviation 35.8 fL (36.4-46.3); Red Blood Count 4.98 M/uL (4.7-6.1)
[2021-07-07 07:27] LABS: BUN Creatinine Ratio 11.3 (10-20); Calcium 8.3 mg/dl (8.5-10.1); Creatinine Clr Calc Pharmacy 109.9 ml/min; Est GFR (African American) 133.2 ml/min; Est GFR (Non-African American) 114.9 ml/min; Potassium 3.8 mmol/L (3.5-5.1)
[2021-07-07 08:15] LABS: Basophils # (auto) 0.01 K/uL (0-0.2); Basophils % (auto) 0.1 %; Eosinophils # (auto) 0.04 K/uL (0-0.5); Eosinophils % (auto) 0.5 %; Immature Granulocytes # (auto) 0.02 K/uL (0.00-0.02); Immature Granulocytes % (auto) 0.2 %; Lymphocytes # (auto) 1.74 K/uL (1.2-3.4); Lymphocytes % (auto) 19.8 %; Monocytes # (auto) 0.87 K/uL (0.11-0.59); Monocytes % (auto) 9.9 %; Neutrophils # (auto) 6.12 K/uL (1.4-6.5); Neutrophils % (auto) 69.5 %
[2021-07-07] MEDS ORDERED: ENOXAPARIN INJ 40 MG/0.4 ML SYR SQ SCH (08:15)
[2021-07-07] MEDS ORDERED: INSULIN GLARGINE SOLOSTAR 100 UNITS/ML 3 ML PEN SC SCH (09:00)
[2021-07-07] MEDS: INSULIN ASPART PER UNIT SC SCH ×2 (09:17→12:58)
--- NOTE | 2021-07-07 09:47 | Pharmacy Report ---
Pharmacy Glycemic Short Note 2 - Date of Service July 07, 2021 - Glycemic Short BSG Results (Last 24 hours): 07/06/21 07/06/21 07/06/21 10:17 12:07 14:52 Glucose POC Glucose 127 H 152 H 136 H 07/06/21 07/06/21 07/06/21 17:55 20:46 20:50 Glucose POC Glucose 207 H 311 H* 292 H 07/07/21 07/07/21 07/07/21 02:37 06:27 08:11 Glucose 118 H POC Glucose 127 H 123 H OUTPATIENT ANTIDIABETIC REGIMEN: * n/a * HbA1c: 11.7% (07/06/21) ASSESSMENT: 07/07 * BSGs predictably elevated yesterday given initial conservative insulin dosing in insulin naive individual * Received 28 units of insulin (15 units of basal and 13 units of prandial/correctional bolus) * Now POD #1 s/p laparoscopic cholecystectomy, seems to be tolerating diet * Immunology labs obtained/pending 07/06 * JR is a 41 year old male who presents with abdominal pain and suspected acute cholecystitis * BSG of 334 mg/dL on presentation, given 10 units IV insulin with a repeat POC BSG ~one hour later of 127 mg/dL * Apparent new diagnosis of diabetes based on elevated random BSG and HbA1c of 11.7% * Patient is currently NPO for planned laparoscopic cholecystectomy today * Will order conservative weight-based Lantus and Novolog at this time * Discussed with CDE who suggested the following labs: * Glutamic Acid Decarboxylase-65 PLUS * Zinc Transporter 8 (ZnT8) Ab or Insulinoma Antigen-2 (IA-2) * Labs subsequently ordered by provider, will follow PLAN FOR INPATIENT GLYCEMIC CONTROL: * Basal insulin * Lantus 8 units SC BID * Bolus insulin * NovoLog per scale ACHS or Q6hrs while NPO * Goal Range: Low 110 mg/dL - High 140 mg/dL * Correction Factor: 30 mg/dL/unit * Nutritional / Prandial insulin per carb ratio of 1 unit per 8 grams CHO consumed
--- NOTE | 2021-07-07 10:41 | Surgery Progress Note ---
Date of Service July 07, 2021 Assessment & Plan (1) Acute cholecystitis: Plan: POD 1 lap sofía advance diet seen with Dr. Pavan wood for d/c from surgical standpoint although eval for newly diagnosed diabetes ongoing Admission and Anticipated Discharge Date Admission Date: July 06, 2021 Subjective tolerating liquids, some incisional pain Physical Exam Gastrointestinal (Abdomen): Inspection/Auscultation: + abdominal surgical incision (dressings dry); abdomen not distended Results & Data ([facility]) Vital Signs (Past 12 Hours) Vital Signs Temp Pulse Pulse Resp BP Pulse Ox 07/07/21 08:03 36.7 C 70 16 118/78 99 07/07/21 04:00 36.9 C 67 15 110/70 98 07/07/21 00:13 36.6 C 74 16 137/69 99 PG Care Time/CCT Total # of Minutes Spent Total Time Spent with Patient: Total time spent is greater than 50% in coordination of care (as documented) at patient's floor/unit and/or counseling patient: Coding Level of Care Code None Diagnoses Acute cholecystitis K81.0
--- NOTE | 2021-07-07 15:44 | Discharge Summary ---
Date of Service July 07, 2021 Admission HPI Per Admitting Provider The patient is a 41-year-old male who p/w upper abdominal discomfort as well as nausea and vomiting this been ongoing since 1130 last evening. Pain from epigastrum to RUQ/back. Tachy and normotensive on admit. no leukocytosis. CT-Ab: IMPRESSION: Cholelithiasis, including calculi within the gallbladder neck. Moderate gallbladder wall thickening. These findings favor acute cholecystitis. US: IMPRESSION:1. Cholelithiasis and mild gallbladder wall thickening. No sonographic Roberto sign. These findings are equivocal for acute cholecystitis. Hepatobiliary scan could be obtained as indicated. 2. No biliary ductal dilatation. 1130 pm thought had heartburn. No improvement with zantac. Traveled from his epigastrum to RUQ/RLQ and back. Took alieve, soaked in the tub, tried and ice pack on his bakc all of which did not help. With persistent pain came in to ER. Found out he had a gallbladder problem and that he has high blood suga NO pain with meals. NO change in BMs/BMs brown not zelaya. No history of gallbladder problems no history of abdominal surgery Hx of leg surgery. 9 screws and 1 plate in R leg.Needed tear duct surgery as a child. Denies lung disease WBC normal Hgb normal Plt normal Cr normal BSG 335 on admit, no hx DM AST/ALT/Alkph 02/05/ COVID Pending Recieved morphine, zofran, 1L NSS in ER. Surgery Consulted by ER No heart problems No FHx of CT. Fhx HTN and T2DM Medical History: Reviewed Medications: Reviewed Surgical History: Reviewed Allergies: Reviewed, NKDA Social History: 0.5ppd 'for quite a long time.' Alcohol rare/social. No MM or recreational drug use. Code Status: Full Code. Surrogate DM [phone] Meghann Sulaiman. 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 NAD. Cooperative. HEENT: Atraumatic, normocephalic. Pupils equal and reactive. Vision and hearing grossly intact Pulm: CTAB A&P. -wheezes, -rales, -rhonchi. Symmetrical chest rise. No increased work of breathing. No respiratory distress. Cardiac: RRR, -mrg. Radial pulses intact and symmetrical. Abdominal: Nontender in right upper quadrant, trace appropriate surgical tenderness at incision sites otherwise nontender without rebound/rigidity/guarding Discharge Data Allergies Allergy/AdvReac Type Severity Reaction Status Date / Time No Known Allergies Allergy Unknown Verified 07/06/21 07:10 Consultations 07/06/21 07:46 ED Decision to Admit Stat 07/06/21 07:55 Consult General Surgery Routine Procedures Performed Operation Date: 07/06/21 13:10 Actual Procedures p Laparoscopic Cholecystectomy (Not Applicable) - Akhil Browne DO Ordered Studies 07/06/21 05:23 US gallbladder Stat 07/06/21 06:37 CT abd pelvis IV con only Stat Hospital Course (1) Acute cholecystitis: J Luis is a 41yo M with a PMHx of tobacco use who presents with abdominal pain and imaging suggestive of cholelithiasis To do as outpatient: 1. Follow-up with endocrinology, continue type 1 diabetes evaluation 2. Continue new basal/bolus insulin regimen as below. Further titration per endocrinology/PCP at outpatient follow-up 3. Routine follow-up with surgery after cholecystectomy Cholelithiasis/acute cholecystitis - CT: IMPRESSION: Cholelithiasis, including calculi within the gallbladder neck. Moderate gallbladder wall thickening. These findings favor acute cholecystitis. - US: 1. Cholelithiasis and mild gallbladder wall thickening. No sonographic Roberto sign. These findings are equivocal for acute cholecystitis. Hepatobiliary scan could be obtained as indicated. No biliary ductal dilatation. - WBC normal, Hgb normal - Plt normal - Cr normal - BSG 335 on admit, no hx DM - AST/ALT/Alkph 02/05/117 - COVIDnegative Surgery consulted. Patient status post lap elvira 07/06, uncomplicated. Diet advanced, tolerating DM diet well at time of discharge Type 1 diabetes mellitus, new A1c 11.7% on admission, BMI 57.9 Patient with no prior history of type 2 diabetes. Does report family history of type 2 diabetes. More recently his mother is failed treatment and notes that she does not have an elevated BMI, is undergoing type I evaluation with endocrinology Glucose over 300 on admission. Received 10 units of IV insulin and basal/bolus sliding scale weight-based subcu. Quick response to therapeutic levels Using approximately 35 units of insulin over hospitalization with good response and control. Will convert on discharge to 15 units Lantus, 5 units of Humalog and may increase or decrease by 2 units for meal size. Patient provided with glucometer and strips, and instructions to check blood sugar 4 times daily. Will call for highs/lows. Type I evaluation including AMY 65, IA 2, zinc transporter pending at time of discharge. Patient scheduled for follow-up with Dr. Jiménez R Leg Hardware - Metal plates and 9 screws in R leg, well healed. DVT prophylaxis: SCDs, ambulating after surgery CODE STATUS: Full code, surrogate decision maker would be his in an emergency Disposition: Medical surgical (2) Hyperglycemia: (3) Smoker: Total Time Total Time Spent Total Time Spent (In Minutes): Time spend day of discharge 65 minutes including direct patient care, documentation, review of labs and images, and coordination of care. Discharge Plan Discharge Items Patient Disposition: Home - Self-Care Reason For Visit: ELVIRA Discharge Diagnosis: Acute cholecystitis Activity: Per Instructions section Lifting: No more than 10 pounds Bathing Comment: can shower over bandages, remove them on Tuesday Driving/Machine Use: Resume 3 days after discharge Non-emergency contact: Primary Care Provider Call non-emergency contact if: you have any medication questions, your symptoms worsen, your pain is not controlled and your pain is worsening Follow-up/Referrals: Praveen Jiménez MD [Physician] - (A referral has been sent to this office, [facility], on your behalf. If you do not hear from them within two weeks, please call this office to follow up.) Kushal Mojica DO [Primary Care Provider] - 07/14/21 9:00 am Akhil Browne DO [Physician] - 07/17/21 9:00 am () Diet: Low Fat Addtl Attending Provider Instructions: You were seen in the hospital for acute cholecystitis, gallbladder stones with evidence of early infection. You underwent an uncomplicated gallbladder removal, and had perioperative antibiotics. Additional antibiotics were not recommended at time of discharge. Your blood sugar was noted to be elevated into the 300s on admit with an A1c of 11.7. This indicates poorly controlled/uncontrolled diabetes. It is uncommon to have diabetes with an A1c over 10 at a relatively normal body weight, as a result you have had some tests for late onset type 1 diabetes ordered. You were seen by the tobacco educator. On discharge the following are recommended for DM management: Take Lantus 15U daily Tale Humalog 5 units with meal, +/- 2 units for large/small meals Check blood sugar 4x per day as discussed with you during admission Call your doctor for any blood sugars over 300 If you have sweating/lightheadedness/dizziness or low blood sugar, take glucose tablets as direct, or seek medical evaluation if severe or you are concerned A follow-up appointment is being made for you with your surgeon as noted above. A follow-up appointment is being made for you with your primary care physician as noted above. Due to your new onset diabetes and relatively low body weight a consultation has been scheduled as outpatient with endocrinology. This appointment is being scheduled as above. If you do not receive a call to confirm any of these appointments, please contact the provider's office directly at the phone numbers above If you develop any new or worsening symptoms including fever, chills, sweats, chest pain, chest pressure, difficulty breathing, uncontrolled nausea/vomiting, rash, wheezing, passing out or nearly passing out, bleeding, black/bloody bowel movements, or other new or concerning symptoms please call your primary care physician, or call 911 for re-evaluation in the emergency department if you are very concerned. Pending Studies at Discharge: Yes (DM immunologic send out tests) Stand-Alone Forms: [facility], Opioid Pain Management, Smoking Cessation Medications and DC Order Prescriptions: New oxycodone-acetaminophen [Percocet] 5-325 mg tablet 1 - 2 tab PO Q4H PRN (Reason: pain, initial therapy, max 6 daily) Qty: 12 RF: 0 (DME) lancets [OneTouch Delica Plus Lancet] 33 gauge misc See Rx Instructions .Route Qty: 100 RF: 0 Lantus Solostar U-100 Insulin 100 unit/mL (3 mL) insulin pen 15 unit subcut QAM Qty: 3 RF: 2 insulin lispro [Humalog KwikPen Insulin] 100 unit/mL insulin pen 5 unit subcut AC Qty: 3 RF: 3 (DME) OneTouch Verio test strips Strip See Rx Instructions .Route Qty: 100 RF: 0 Continued naproxen sodium [Aleve] 220 mg Tablet 220 mg PO BID PRN (Reason: Pain) RF: 0 Discontinued ranitidine HCl [Zantac] 150 mg Tablet 150 mg PO DAILY PRN (Reason: Indigestion) RF: 0 Discharge Orders: Discharge Order (Routine); Ordered 07/07/21 Ordered By: Zheng Pennington/Other Patient Handouts: Diabetes: Keeping Feet Healthy, Diabetes: Inspecting Your Feet, Diabetes: The Benefits of Exercise, Diabetes: Meal Planning, Diabetes Support Admission Data Admit Date/Time: 07/06/21 08:05 Attending Provider: Zheng Norris Admit Provider: Zheng Norris Primary Care Provider: Kushal Mojica Other Providers: Zheng Norris ; Akhil Browne Other Interventions: Discharge Summary Assessment (RN) Last Done: 07/07/21 15:15 Coding Level of Care Code D/C DAY MANAGEMENT >30 MINS Diagnoses Acute cholecystitis K81.0 Hyperglycemia R73.9 Smoker F17.200
== END 2021-07-07 17:45 | disposition home or self-care (01) ==
LOC: 3E 05:03 → ED 05:03 → 3E 09:29